=== PATIENT | female | born 1940 | race Caucasian/White ===

== ENCOUNTER → 2017-04-25 | Outpatient (CLI) | payer OTHER, MEDICAID | LOC: FIMAGING 13:27 | PROVIDERS: ATTEND Family Medicine | DX: Z13.820 Encounter for screening for osteoporosis (principal); M85.80 Other specified disorders of bone density and structure, unspecified site; Z78.0 Asymptomatic menopausal state ==

== ENCOUNTER → 2017-12-18 | Outpatient (CLI) | payer OTHER, MEDICAID | LOC: FIMAGING 14:36 | PROVIDERS: ATTEND Family Medicine | DX: M54.12 Radiculopathy, cervical region (principal); R20.0 Anesthesia of skin ==

== ENCOUNTER 2018-07-02 16:46 | Emergency (ER) | payer OTHER, MEDICAID ==
[2018-07-02 17:16] LABS: PLATELET COUNT 321 10^3/uL (150-400)
--- NOTE | 2018-07-02 17:20 | EDPHY ---
HPI/HX/ROS/PE/MDM Narrative: CHIEF COMPLAINT: Headache, dizziness. HISTORY OF PRESENT ILLNESS: This patient is a 78 year old female with history of hypertension complaining of headache following an episode of dizziness this afternoon. Around 14:00, she was watching something on her iPad, had a sudden visual disturbance lasting a few seconds. Following this she became very dizzy. She felt her heart was beating quickly and irregularly. She had a physical therapy appointment and felt very fatigued and unwell. Her PT provider took her blood pressure and noted it was around 170 systolic and referred her to the emergency department. Her BP is usually around 130 systolic. The patient also developed a severe headache following the episode of dizziness. The patient states this headache is the worst she has ever had. It is currently about 9/10 severity. She denies any numbness or paresthesias in her extremities. No weakness. No syncope or fall. No fever, chills, chest pain, shortness of breath, vomiting, diarrhea, urinary complaints. REVIEW OF SYSTEMS: A comprehensive 10 system review of systems is otherwise negative aside from elements mentioned in the history of present illness and medical decision making. PAST MEDICAL HISTORY: Hypertension (Carvedilol, Norvasc) SOCIAL HISTORY: . Lives in [place]. Nonsmoker. Her did smoke, but has . VITAL SIGNS: Reviewed by me GENERAL: Well-developed, well-nourished, resting comfortably in no respiratory distress. HEENT: Atraumatic. Eyes: No icterus, no injection. Mouth: moist mucous membranes. No erythema or lesions. Neck: supple with no adenopathy. Neg kernigs and brudziski's. No carotid bruit. LUNGS: Clear to auscultation bilaterally, no wheezes, rhonchi or rales. CARDIAC: Regular rate and rhythm, no rubs, murmurs or gallops. ABDOMEN: Soft, nontender, nondistended, bowel sounds normal. BACK: No CVA tenderness. EXTREMITIES: No trauma. No edema. Range of motion is normal throughout. NEURO: Alert and oriented, grossly nonfocal. No nystagmus. EOMI intact. On several occasions, I had to re-prompt her for questions/commands related to her neurologic exam. SKIN: Warm and dry, no rash. PSYCHIATRIC: Normal mentation, no agitation. Portions of this note were transcribed by a medical office assistant instructor. I personally performed a history, physical exam, medical decision making, and confirmed accuracy of information the transcribed note. ED Course: 78 y/o female presents with severe headache following an episode of visual disturbance and dizziness. Her exam is largely unremarkable but on several occasions, I had to re-prompt her for questions/commands related to her neurologic exam. Plan for EKG, labs including CBC, chemistries, troponin. Plan for CT head to r/o acute intracranial processes. Patient underwent a CT scan of head. I had ordered additional studies to include CTA of head and neck, but patient declined these imaging studies. 12-LEAD EKG: Please see the full report in [facility]. My interpretation: Sinus rhythm. 17:[address] العراقي, radiologist. CT head negative for acute processes. Reassessed patient. She would like medication to address her headache. Plan to administer 1000mg PO acetaminophen. Discussed further evaluation of headache in setting of hypertension and worse headache of life. Discussed LP, angiograms, further evaluation. Patient would prefer to be discharged when headache is improved. Clonidine 0.1mg given for persistant hypertension. Patient is feeling better following acetaminophen. BP has trended downwards. Plan to discharge home in good condition. She will follow up with her primary care provider for management of her antihypertensive medication regimen. I recommended she consider a Holter monitor for further evaluation of her palpitations. Follow up and return precautions discussed. She is comfortable with this plan. MDM: After history was obtained, and the physical exam performed, a differential for headache was considered including, but not limited to, subarachnoid hemorrhage, migraine headache, tension headache, headache related to hypertension and infectious causes such as meningitis, sinusitis, encephalitis. - Data Points Imaging Results: Imaging Impressions Head CT 07/02/18 17:19 Impression: Negative. No acute intracranial hemorrhage, subdural hematoma, or swelling. Findings discussed with Emergency Department physician, Kath Velazquez MD, on , 17:42. Imaging: Discussed imaging studies w/ nursing department chairperson Radiologist Laboratory Results: Laboratory Results 07/02/18 17:00 07/02/18 17:00 Medications Given: Discontinued Medications Acetaminophen (Tylenol) 1,000 mg PO EDNOW ONE Stop: 07/02/18 18:01 Last Admin: 07/02/18 18:17 Dose: 1,000 mg Clonidine (Catapres) 0.1 mg PO EDNOW ONE Stop: 07/02/18 18:16 Last Admin: 07/02/18 18:17 Dose: 0.1 mg Point of Care Test Results: Chemistry 07/02/18 17:09 POC Troponin I 0.00 ng/mL ng/mL (0.00-0.08) General Time Seen by Provider: 07/02/18 16:53 Initial Vital Signs: Initial Vital Signs Temperature (C) 36.8 C 07/02/18 16:52 Heart Rate 88 07/02/18 16:52 Respiratory Rate 18 07/02/18 16:52 Blood Pressure 190/101 H 07/02/18 16:52 O2 Sat (%) 96 07/02/18 16:52 O2 Delivery Mode Room Air Allergies/Adverse Reactions: Sulfa (Sulfonamide Antibiotics) Allergy (Verified 07/02/18 16:51) Home Medications: Medication Instructions Recorded amLODIPine BESYLATE [Norvasc 5mg] 5 mg PO DAILY 10/26/11 Crestor 07/02/18 Departure - Departure Disposition: Home, Routine, Self-Care Clinical Impression: Palpitations, Hypertensive urgency Headache Qualifiers: Headache type: unspecified Headache chronicity pattern: acute headache Intractability: not intractable Qualified Code(s): R51 - Headache Condition: Good Instructions: Heart Palpitations (ED), Acute Headache (ED), Hypertension (ED) Additional Instructions: 1. Follow up with your primary care provider for discussion of your medication regimen. You may wish to consider a Holter monitor to evaluate your heart palpitations. 2. Stay well-hydrated. 3. Check your blood pressure tonight and tomorrow morning. Please take your blood pressure medications as directed. 4. Please return to the emergency department if you developed high blood pressure in the setting of headache, chest pain, palpitations, or other concerns. Referrals: Ovi Arreola MD [Medical Doctor] - As per Instructions Report Scribed for: Kath Velazquez Report Scribed by: Edie Varner Date of Report: 07/02/18 Time of Report: 23:29
[2018-07-02] MEDS ORDERED: IOPAMIDOL (ISOVUE 370) 100 ML BTL IV ONE (17:36)
[2018-07-02] MEDS ORDERED: ACETAMINOPHEN 500 MG TAB PO ONE (18:00)
[2018-07-02 19:23] VITALS: BP 171/59
--- NOTE | 2018-07-02 20:18 | CPEKG ---
Test Reason : OPEN Blood Pressure : / mmHG Vent. Rate : 077 BPM Atrial Rate : 075 BPM P-R Int : 143 ms QRS Dur : 085 ms QT Int : 394 ms P-R-T Axes : 064 036 082 degrees QTc Int : 446 ms Sinus rhythm Consider left ventricular hypertrophy Confirmed by Kath Velazquez ([id number]) on 07/02/2018 8:18:05 PM Referred By: Confirmed By:Kath Velazquez
== END 2018-07-02 19:27 | disposition home or self-care (01) ==
LOC: EDUNIT#
DX: R00.2 Palpitations (principal); R51 Headache; I16.0 Hypertensive urgency
CPT/HCPCS: 84484-PO; Q9967

== ENCOUNTER 2018-07-09 21:00 | Emergency (ER) | payer MEDICAID, OTHER ==
--- NOTE | 2018-07-09 21:54 | EDPHY ---
H & P Stated Complaint: high BP and bilat hand numbness Time Seen by Provider: 07/09/18 21:54 HPI/ROS: HPI CHIEF COMPLAINT: Bilateral hand numbness, anxiety, hypertension HISTORY OF PRESENT ILLNESS: Very pleasant 78-year-old female, she has a history of hypertension, takes Coreg 6.25, additionally Norvasc 10 mg at night, presents emergency room with increased stress, global throbbing headache that is 3/10 mild comma and had numbness and tingling in both for hands. She felt stress. Took blood pressure at home was 170s systolic. Denies any chest pain or chest pressure, denies any shortness of breath, denies focal weakness. Since taking extra dose of Coreg she presents emergency room in her blood pressure in the 140s. Past Medical History: Hypertension, hyperlipidemia Past Surgical History: No recent surgery Social History: Denies drugs alcohol or tobacco. Family History: Noncontributory ROS REVIEW OF SYSTEMS: 10 Systems were reviewed and negative with the exception of the elements mentioned in the history of present illness. Exam Constitutional appears well nontoxic, somewhat distressed, triage nursing summary reviewed, vital signs reviewed, awake/alert. Eyes normal conjunctivae and sclera, EOMI, PERRLA. HENT normal inspection, atraumatic, moist mucus membranes, no epistaxis, neck supple/ no meningismus, no raccoon eyes. Respiratory clear to auscultation bilaterally, normal breath sounds, no respiratory distress, no wheezing. Cardiovascular rate normal, regular rhythm, no murmur, no edema, distal pulses normal. Gastrointestinal soft, non-tender, no rebound, no guarding, normal bowel sounds, no distension, no pulsatile mass. Genitourinary no CVA tenderness. Musculoskeletal no midline vertebral tenderness, full range of motion, no calf swelling, no tenderness of extremities, no meningismus, good pulses, neurovascularly intact. Skin pink, warm, & dry, no rash, skin atraumatic. Neurologic awake, alert and oriented x 3, AAOx3, moves all 4 extremities equally, motor intact, sensory intact, CN II-XII intact, normal cerebellar, normal vision, normal speech. Psychiatric anxious Heme/Lymph/Immune no lymphadenopathy. Differential Diagnosis: Includes but is not limited to in a particular order acute anxiety, panic attack, stress response, hypertensive urgency, hypertensive emergency Medical Decision Making: Plan for this patient IV establishment blood draw, EKG , oral Ativan, oral blood pressure medication Norvasc 10 mg she normally takes at night, and re-evaluate. Re-evaluation: EKG interpretation by me on record in [facility]. Impression time of EKG 2206, sinus rhythm rate of 70 LVH present. Otherwise no acute ischemia. Troponin 0.00 2308: Patient is eager to be discharged home. Her troponins negative. Her EKG is unremarkable. Blood pressures been stable here. Headache improved after Tylenol. Her neurological exam is unremarkable without any signs of neuro deficit. No chest pain or chest pressure. She is requesting discharge. Recommend she keep a blood pressure log. Return precautions discussed. Return emergency room if there is worsening symptoms questions or concerns she understands. Source: Patient - Personal History Current Tetanus/Diphtheria Vaccine: No Current Tetanus Diphtheria and Acellular Pertussis (TDAP): No - Medical/Surgical History Hx Asthma: No Hx Chronic Respiratory Disease: No Hx Diabetes: No Hx Cardiac Disease: No Hx Renal Disease: No Hx Cirrhosis: No Hx Alcoholism: No Hx HIV/AIDS: No Hx Splenectomy or Spleen Trauma: No Other PMH: htn, hyperlipidemia - Social History Smoking Status: Never smoked Constitutional: Initial Vital Signs Temperature (C) 36.6 C 07/09/18 21:16 Heart Rate 74 07/09/18 21:16 Respiratory Rate 16 07/09/18 21:16 Blood Pressure 148/62 H 07/09/18 21:16 O2 Sat (%) 97 07/09/18 21:16 O2 Delivery Mode Room Air Allergies/Adverse Reactions: Sulfa (Sulfonamide Antibiotics) Allergy (Verified 07/09/18 21:19) Home Medications: Medication Instructions Recorded amLODIPine BESYLATE [Norvasc 5mg] 5 mg PO DAILY 10/26/11 Crestor 07/02/18 Omeprazole 07/09/18 Medical Decision Making - Data Points Laboratory Results: Laboratory Results 07/09/18 22:17 07/09/18 22:17 07/09/18 07/09/18 07/09/18 22:23 22:17 22:17 WBC 8.00 10^3/uL 10^3/uL (3.80-9.50) RBC 5.12 10^6/uL 10^6/uL (4.18-5.33) Hgb 13.1 g/dL g/dL (12.6-16.3) Hct 40.3 % % (38.0-47.0) MCV 78.7 fL L fL (81.5-99.8) MCH 25.6 pg L pg (27.9-34.1) MCHC 32.5 g/dL g/dL (32.4-36.7) RDW 15.2 % % (11.5-15.2) Plt Count 312 10^3/uL 10^3/uL (150-400) MPV 10.1 fL fL (8.7-11.7) Neut % (Auto) 58.1 % % (39.3-74.2) Lymph % (Auto) 28.9 % % (15.0-45.0) Gregory % (Auto) 8.0 % % (4.5-13.0) Eos % (Auto) 3.6 % % (0.6-7.6) Baso % (Auto) 1.0 % % (0.3-1.7) Nucleat RBC Rel Count 0.0 % % (0.0-0.2) Absolute Neuts (auto) 4.65 10^3/uL 10^3/uL (1.70-6.50) Absolute Lymphs (auto) 2.31 10^3/uL 10^3/uL (1.00-3.00) Absolute Monos (auto) 0.64 10^3/uL 10^3/uL (0.30-0.80) Absolute Eos (auto) 0.29 10^3/uL 10^3/uL (0.03-0.40) Absolute Basos (auto) 0.08 10^3/uL 10^3/uL (0.02-0.10) Absolute Nucleated RBC 0.00 10^3/uL 10^3/uL (0-0.01) Immature Gran % 0.4 % % (0.0-1.1) Immature Gran # 0.03 10^3/uL 10^3/uL (0.00-0.10) Sodium 136 mEq/L mEq/L (135-145) Potassium 4.7 mEq/L mEq/L (3.3-5.0) Chloride 102 mEq/L mEq/L (97-110) Carbon Dioxide 22 mEq/l mEq/l (22-31) Anion Gap 12 mEq/L mEq/L (8-16) BUN 21 mg/dL mg/dL (7-23) Creatinine 0.9 mg/dL mg/dL (0.6-1.0) Estimated GFR > 60 Glucose 112 mg/dL H mg/dL (70-100) Calcium 9.7 mg/dL mg/dL (8.5-10.4) POC Troponin I 0.00 ng/mL ng/mL (0.00-0.08) Medications Given: Discontinued Medications Acetaminophen (Tylenol) 1,000 mg PO EDNOW ONE Stop: 07/09/18 21:59 Last Admin: 07/09/18 22:17 Dose: 1,000 mg Sodium Chloride (Ns) 500 mls @ 1,000 mls/hr IV EDNOW ONE PRN Reason: Protocol Stop: 07/09/18 22:27 Last Admin: 07/09/18 22:17 Dose: 500 mls Lorazepam (Ativan) 0.5 mg PO EDNOW ONE Stop: 07/09/18 21:59 Last Admin: 07/09/18 22:19 Dose: 0.5 mg Point of Care Test Results: Chemistry 07/09/18 22:23 POC Troponin I 0.00 ng/mL ng/mL (0.00-0.08) Departure - Departure Disposition: Home, Routine, Self-Care Clinical Impression: Anxiety Hypertension Qualifiers: Hypertension type: unspecified Qualified Code(s): I10 - Essential (primary) hypertension Condition: Good Instructions: Hypertension (ED), Anxiety (ED) Additional Instructions: 1. Return to the emergency room if develops any worsening symptoms questions or concerns. 2. Please keep an eye on her blood pressure I recommend checking it twice a day. I recommend he take it once in the morning once at night. After you take her blood pressure medications. 3. Please keep a log of this and follow up with primary care doctor 4. Return emergency room if he develops chest pain, shortness of breath, severe headache, high blood pressure. Referrals: Neida Weber MD [Primary Care Provider] - As per Instructions
[2018-07-09] MEDS ORDERED: LORazepam 0.5 MG TAB PO ONE (21:58)
[2018-07-09] MEDS ORDERED: ACETAMINOPHEN 500 MG TAB PO ONE (21:58)
[2018-07-09] MEDS ORDERED: NS 500 ML IV ONE (21:58)
[2018-07-09] MEDS: amLODIPine BESYLATE 5 MG TAB PO ONE ×2 (22:22→23:19)
[2018-07-09 22:29] LABS: PLATELET COUNT 312 10^3/uL (150-400)
--- NOTE | 2018-07-09 23:16 | CPEKG ---
Test Reason : OPEN Blood Pressure : / mmHG Vent. Rate : 070 BPM Atrial Rate : 071 BPM P-R Int : 151 ms QRS Dur : 087 ms QT Int : 389 ms P-R-T Axes : 070 031 078 degrees QTc Int : 420 ms Sinus rhythm Consider left ventricular hypertrophy Confirmed by Kath Velazquez ([id number]) on 07/09/2018 11:16:03 PM Referred By: Confirmed By:Kath Velazquez
[2018-07-09 23:18] VITALS: BP 162/81
== END 2018-07-09 23:27 | disposition home or self-care (01) ==
DX: I10 Essential (primary) hypertension (principal); F41.9 Anxiety disorder, unspecified; R51 Headache; E86.9 Volume depletion, unspecified; E78.5 Hyperlipidemia, unspecified
CPT/HCPCS: 84484-PO

== ENCOUNTER 2018-10-08 15:50 | Emergency (ER) | payer OTHER, MEDICAID ==
[2018-10-08] MEDS ORDERED: amLODIPine BESYLATE 5 MG TAB PO ONE (16:40)
--- NOTE | 2018-10-08 17:47 | EDPHY ---
H & P Stated Complaint: high blood pressure x 2 days increased carvedilol/ young Time Seen by Provider: 10/08/18 16:29 HPI/ROS: CHIEF COMPLAINT: Headache, hypertension HISTORY OF PRESENT ILLNESS: The patient presents to the ED with a 1 day history of headache and hypertension. The patient is on hydrochlorothiazide, amlodipine and carvedilol for management of hypertension. She denies any acute numbness or weakness. She tempted to see her primary care provider today however was directed to the emergency department. Patient denies any abdominal pain, vomiting or infectious symptoms. The patient states that her headache is mild in frontal in nature. She last changed her Coreg dose in July per her report. REVIEW OF SYSTEMS: A comprehensive 10 point review of systems is otherwise negative aside from elements mentioned in the history of present illness. Source: Patient Exam Limitations: No limitations - Personal History Current Tetanus Diphtheria and Acellular Pertussis (TDAP): Yes - Medical/Surgical History Hx Asthma: No Hx Chronic Respiratory Disease: No Hx Diabetes: No Hx Cardiac Disease: No Hx Renal Disease: No Hx Cirrhosis: No Hx Alcoholism: No Hx HIV/AIDS: No Hx Splenectomy or Spleen Trauma: No Other PMH: htn, hyperlipidemia - Social History Smoking Status: Never smoked - Physical Exam Exam: General Appearance: Alert, no distress Eyes: Pupils equal and round no pallor or injection ENT, Mouth: Mucous membranes moist Respiratory: There are no retractions, lungs are clear to auscultation Cardiovascular: Regular rate and rhythm Gastrointestinal: Abdomen is soft and nontender, no masses, bowel sounds normal Neurological: A&O, normal motor function, normal sensory exam, normal cranial nerves Skin: Warm and dry, no rashes Musculoskeletal: Neck is supple nontender Extremities: symmetrical, full range of motion Psychiatric: Patient is oriented X 3, there is no agitation Constitutional: Initial Vital Signs Temperature (C) 36.5 C 10/08/18 15:55 Heart Rate 75 10/08/18 15:55 Respiratory Rate 18 10/08/18 15:55 Blood Pressure 173/88 H 10/08/18 15:55 O2 Sat (%) 97 10/08/18 15:55 O2 Delivery Mode Room Air Allergies/Adverse Reactions: Sulfa (Sulfonamide Antibiotics) Allergy (Verified 10/08/18 15:54) Home Medications: Medication Instructions Recorded amLODIPine BESYLATE [Norvasc 5mg] 5 mg PO DAILY 10/26/11 Crestor 07/02/18 Omeprazole 07/09/18 Carvedilol 10/08/18 Medical Decision Making ED Course/Re-evaluation: I reviewed the patient's outpatient medications and she appears to be on Coreg 6.25 twice daily, Norvasc 5 mg daily hydrochlorothiazide 25 mg daily. The patient was given 5 mg of Norvasc upon arrival. Patient had serial examinations in the ED. She reports her headache has improved. Re-evaluated the patient blood pressure is 160/60, down from 207/70 at the time of my evaluation. I do feel the patient can be discharged home with instructions to double her Norvasc. The patient should follow up with her primary care provider for a blood pressure recheck in the coming days. Recheck at 6:14 p.m.: Blood pressure now 150/64. Headache resolved. Patient would like to be discharged home and follow up with primary care provider. She is advised to return to the emergency department for severe headache, markedly worsening symptoms or other concerns. Differential Diagnosis: Differential diagnosis considered includes hypertensive urgency, hypertensive emergency, intracranial hemorrhage, stroke - Data Points Medications Given: Discontinued Medications Amlodipine Besylate (Norvasc) 5 mg PO EDNOW ONE Stop: 10/08/18 16:41 Last Admin: 10/08/18 16:52 Dose: 5 mg Departure - Departure Disposition: Home, Routine, Self-Care Clinical Impression: Hypertension Condition: Good Instructions: Chronic Hypertension (ED) Additional Instructions: 1. I do recommend that you double your Norvasc dose to 10 mg daily. 2. Please schedule a follow-up appointment with your primary care provider for a blood pressure recheck in the coming days. Referrals: Evonne Kapoor MD [Primary Care Provider] - As per Instructions
[2018-10-08 18:13] VITALS: BP 150/75
== END 2018-10-08 18:20 | disposition home or self-care (01) ==
DX: R51 Headache (principal); I10 Essential (primary) hypertension; E78.5 Hyperlipidemia, unspecified; Z79.899 Other long term (current) drug therapy

== ENCOUNTER → 2018-10-29 | Outpatient (CLI) | payer OTHER, MEDICAID | LOC: BHFA 11:00 | PROVIDERS: ATTEND Internal Medicine Cardiovascular Disease | DX: R00.2 Palpitations (principal); R06.02 Shortness of breath ==

== ENCOUNTER → 2018-10-31 | Outpatient (CLI) | payer OTHER, MEDICAID | LOC: BHFA 10:45 | PROVIDERS: ATTEND Internal Medicine Cardiovascular Disease | DX: R06.02 Shortness of breath (principal) ==